=== PATIENT | female | born 1950 | race Two or more races ===

== ENCOUNTER → 2024-04-11 | Outpatient (CLI) | payer OTHER, SELFPAY ==
[2024-04-11 10:54] LABS: Creatinine MALB Rnd Ur 89 mg/dL (30-125); Microalbumin Creat Ratio 4 mg/gCrea (<30); Microalbumin, Random Urine 4 mg/L (0-300)
[2024-04-11 10:55] LABS: Glucose Estimated Average 117 mg/dL (80-131); Hemoglobin A1C 5.7 % Hgb (4.8-6.0)
[2024-04-11 11:22] LABS: Alanine Aminotransferase 16 U/L (10-49); Albumin, Serum 4.4 gm/dL (3.4-4.8); Albumin/Globulin Ratio 1.9 (1.2-2.2); Alkaline Phosphatase 98 U/L (46-116); Anion Gap 6 (7-16); Aspartate Amino Transferase 18 U/L (0-34); BUN/Creatinine Ratio 26 Ratio (12-20); Bilirubin,Total 0.4 mg/dL (0.3-1.2); Blood Urea Nitrogen 18 mg/dL (9-23); Calcium 9.8 mg/dL (8.3-10.6); Calcium (Corrected) 9.8 mg/dL (8.5-10.1); Carbon Dioxide 28.6 mMol/L (20.0-31.0); Cardiac Risk Estimate 2.4 RATIO (3.7-5.6); Chloride 104 mMol/L (98-107); Cholesterol 218 mg/dL (132-200); Creatinine (Component) 0.7 mg/dL (0.6-1.3); Globulin 2.3 gm/dL (2.3-3.5); Glucose 92 mg/dL (74-106); HDL Cholesterol 89 mg/dL (40-60); LDL Cholesterol,Calculated 114 mg/dL (0-130); Osmolality,Calculated 279 (275-295); Potassium 4.2 mMol/L (3.4-5.1); Sodium 139 mMol/L (136-145); Total Protein 6.7 gm/dL (5.7-8.2); Triglycerides 75 mg/dL (30-150); eGFR > 60 See Note
== END | disposition home or self-care (01) ==
PROVIDERS: PCP Family Medicine; Referring Provider Family Medicine; Visit Provider Family Medicine
DX: E11.65 Type 2 diabetes mellitus with hyperglycemia (principal); E78.1 Pure hyperglyceridemia
CPT/HCPCS: 36415; 80053; 80061; 82043; 82570; 83036

== ENCOUNTER → 2024-04-12 | Outpatient (CLI) | payer OTHER, SELFPAY ==
[2024-04-12 10:56] LABS: OBS Card Lot # 23001; OBS Performed By LAB; OBS QC OK? Yes
[2024-04-12 12:23] LABS: OBS Developer Lot # 23003; Occult Blood, Stool Negative (Negative)
== END | disposition home or self-care (01) ==
LOC: SLDO 10:30
PROVIDERS: PCP Family Medicine; Referring Provider Family Medicine; Visit Provider Family Medicine
DX: Z12.11 Encounter for screening for malignant neoplasm of colon (principal)
CPT/HCPCS: 82270

== ENCOUNTER → 2024-10-09 | Outpatient (CLI) | payer OTHER, SELFPAY ==
[2024-10-09 11:39] LABS: Vitamin D 25 Hydroxy Total 43.9 ng/mL (7.3-40.2)
[2024-10-09 11:41] LABS: Glucose Estimated Average 120 mg/dL (80-131); Hemoglobin A1C 5.8 % Hgb (4.8-6.0)
[2024-10-09 11:50] LABS: Alanine Aminotransferase 14 U/L (10-49); Albumin, Serum 4.2 gm/dL (3.4-4.8); Albumin/Globulin Ratio 1.6 (1.2-2.2); Alkaline Phosphatase 74 U/L (46-116); Anion Gap 9 (7-16); Aspartate Amino Transferase 21 U/L (0-34); BUN/Creatinine Ratio 23 Ratio (12-20); Bilirubin,Total 0.5 mg/dL (0.3-1.2); Blood Urea Nitrogen 16 mg/dL (9-23); Calcium 9.2 mg/dL (8.3-10.6); Calcium (Corrected) 9.2 mg/dL (8.5-10.1); Carbon Dioxide 29.3 mMol/L (20.0-31.0); Cardiac Risk Estimate 2.3 RATIO (3.7-5.6); Chloride 102 mMol/L (98-107); Cholesterol 200 mg/dL (132-200); Creatinine (Component) 0.7 mg/dL (0.6-1.3); Globulin 2.6 gm/dL (2.3-3.5); Glucose 97 mg/dL (74-106); HDL Cholesterol 86 mg/dL (40-60); Osmolality,Calculated 280 (275-295); Potassium 4.1 mMol/L (3.4-5.1); Sodium 140 mMol/L (136-145); Total Protein 6.8 gm/dL (5.7-8.2); eGFR > 60 See Note
[2024-10-09 12:47] LABS: LDL Cholesterol,Calculated 97 mg/dL (0-130); Triglycerides 85 mg/dL (30-150)
== END | disposition home or self-care (01) ==
LOC: COPL 09:57
PROVIDERS: PCP Family Medicine; Referring Provider Family Medicine; Visit Provider Family Medicine
DX: E11.65 Type 2 diabetes mellitus with hyperglycemia (principal); E55.9 Vitamin D deficiency, unspecified
CPT/HCPCS: 36415; 80053; 80061; 82306; 83036

== ENCOUNTER → 2025-01-11 | Outpatient (CLI) | payer OTHER, SELFPAY ==
--- NOTE | 2025-01-11 09:15 | XR_ITS ---
Examination: Screening digital mammography, bilateral Computer aided detection 3-D breast Tomosynthesis, bilateral Date and time of exam: January 11, 2025 0915 hours Compared to mammograms dating to January 07, 2021 Indication: Screening Technique: Nonmagnified MLO, CC views of the breasts to been obtained, reconstructed from 3-D Tomosynthesis images. R2 computer aided detection program utilized for evaluation of suspicious masses and/or abnormal calcifications. 3-D Tomosynthesis images obtained. Findings: Scattered areas of fibroglandular density 4 mm focal asymmetry/nodule, 6:00 position right breast Impression: BI-RADS Category 0: Incomplete: Need additional imaging evaluation Recommend follow-up spot compression films of 4 mm nodule 6:00 position right breast as well as right breast sonography to complete the workup
[2025-01-11 11:10] LABS: Creatinine MALB Rnd Ur 158 mg/dL (30-125); Microalbumin Creat Ratio 6 mg/gCrea (<30); Microalbumin, Random Urine 9 mg/L (0-300)
== END | disposition home or self-care (01) ==
PROVIDERS: Referring Provider Family Medicine; Visit Provider Family Medicine
DX: Z12.31 Encounter for screening mammogram for malignant neoplasm of breast (principal); N63.15 Unspecified lump in the right breast, overlapping quadrants; E11.65 Type 2 diabetes mellitus with hyperglycemia
CPT/HCPCS: 77063; 77067; 82043; 82570

== ENCOUNTER → 2025-02-06 | Outpatient (CLI) | payer OTHER, SELFPAY ==
--- NOTE | 2025-02-06 13:00 | XR_ITS ---
Examination: Breast ultrasound, unilateral, right complete Date and time of exam: February 06, 2025 1326 hours INDICATIONS: Mammogram January 11, 2025 4 mm focal asymmetry 6:00 position right breast Technique: Real-time lopez scale ultrasonographic imaging performed right breast including all 4 quadrants as well as nipple retroareolar and axillary region. Findings: 6:00 cyst 4 x 4 millimeter No solid nodules IMPRESSION: BI-RADS Category 2: Benign findings
--- NOTE | 2025-02-06 13:30 | XR_ITS ---
Examination: Diagnostic digital mammography, unilateral, right Computer aided detection 3-D breast Tomosynthesis, unilateral Date and time of exam: February 06, 2025 1337 hours INDICATIONS: Mammogram January 11, 2025 focal asymmetry right breast 6:00 position Technique: Nonmagnified MLO, CC views of the right breast have been obtained, reconstructed from 3-D Tomosynthesis images. R2 computer aided detection program utilized for evaluation of suspicious masses and/or abnormal calcifications. 3-D Tomosynthesis images obtained. Findings: Scattered areas of fibroglandular density 6 mm focal asymmetry does remain in the lower right breast on the spot compression MLO view Impression: BI-RADS category 3: Probably benign findings One additional 6 month right mammogram follow-up strongly recommended to document stability of focal asymmetry described above
== END | disposition home or self-care (01) ==
LOC: CDIM 12:29
PROVIDERS: PCP Family Medicine; Referring Provider Family Medicine; Visit Provider Family Medicine
DX: R92.331 Mammographic heterogeneous density, right breast (principal); N64.89 Other specified disorders of breast
CPT/HCPCS: 76641; 77061; 77065; G0279